=== PATIENT | female | born 2000 | race Asian ===

== ENCOUNTER 2024-02-29 07:13 | Outpatient (REF) | payer BC, SELFPAY | END 2024-02-29 07:14 | disposition home or self-care (01) | LOC: HO.UMASIMG 07:13 | PROVIDERS: Visit Provider Nurse Practitioner Women's Health | DX: Z13.89 Encounter for screening for other disorder (principal) ==

== ENCOUNTER 2024-08-08 06:58 | Outpatient (REF) | payer BC, SELFPAY ==
--- NOTE | ~2024-08-08 | US_ITS ---
CLINICAL HISTORY: RLQ PAIN US PELVIS TRANSABDOMINAL AND TRANSVAGINAL WITH DOPPLER LIMITED Comparison: None Findings: Transabdominal scanning performed for overall anatomy. Transvaginal scanning performed for additional detail. Anteverted uterus is 6.0 cm length. Normal myometrium. Endometrium 2.1 mm thickness. Right ovary 2.7 x 2.1 x 1.9 cm. Left ovary 2.8 x 1.6 x 2.2 cm. Normal color Doppler of both ovaries. Multiple subcentimeter follicles bilaterally. No dominant cyst. No free fluid. IMPRESSION: 1. No ovarian torsion or dominant ovarian cyst. 2. No free fluid. 3. Unremarkable uterus and endometrium. This document has been electronically signed by: Raegan Gaines DO on 08/08/2024 16:53:01
== END 2024-08-08 06:59 | disposition home or self-care (01) ==
LOC: HO.UMASIMG 06:58
PROVIDERS: Visit Provider Nurse Practitioner
DX: R10.31 Right lower quadrant pain (principal)
CPT/HCPCS: 76830; 76856

== ENCOUNTER → 2024-08-08 14:00 | Outpatient (BNV) | payer BC, SELFPAY | PROVIDERS: Visit Provider Radiology Diagnostic Radiology | DX: R10.31 Right lower quadrant pain (principal) | CPT/HCPCS: 76830; 76856 ==